=== PATIENT | female | born 1995 ===

== ENCOUNTER 2017-07-15 10:49 | Emergency (ER) | payer OTHER ==
--- NOTE | 2017-07-15 12:16 | UC ---
FLU HPI - HPI Summary HPI Summary: Pt c/o generalized malaise, BAY, cough, chills X 4 days. - History of Current Complaint Chief Complaint: UCGeneralIllness Stated Complaint: FEVER,MIGRAINE,TIRED Time Seen by Provider: 07/15/17 11:52 Hx Obtained From: Patient Hx Last Menstrual Period: 07/04/17 ?: No Onset/Duration: Sudden Onset, Lasting Days, Still Present Severity Currently: Mild Severity Initially: Mild Pain Intensity: 6 Associated Signs & Symptoms: Positive: Fever, Myalgia, Cough, Nasal Congestion, Headache Related Hx: Possible Flu/Infectious Exposure - Risk Factors Influenza Risk Factors: Negative - Allergy/Home Medications Allergies/Adverse Reactions: Allergies Allergy/AdvReac Type Severity Reaction Status Date / Time No Known Allergies Allergy Verified 07/15/17 11:44 Home Medications: Home Medications Ibuprofen [Advil] 400 07/15/17 [History] PMH/Surg Hx/FS Hx/Imm Hx Previously Healthy: Yes - Surgical History Surgical History: Yes Surgery Procedure, Year, and Place: RIGHT ANKLE, ORIF - Family History Known Family History: Positive: Cardiac Disease - Social History Occupation: Student Lives: Dormitory/Roommates Alcohol Use: Occasionally Substance Use Type: None Smoking Status (MU): Never Smoked Tobacco Have You Smoked in the Last Year: No Household Exposure Type: Cigarettes Review of Systems Constitutional: Fever, Chills, Fatigue Skin: Negative Eyes: Negative ENT: Sinus Congestion Respiratory: Cough Cardiovascular: Negative Gastrointestinal: Negative Genitourinary: Negative Motor: Negative Neurovascular: Negative Musculoskeletal: Myalgia Neurological: Headache Psychological: Negative Is Patient Immunocompromised?: No All Other Systems Reviewed And Are Negative: Yes Physical Exam Triage Information Reviewed: Yes Appearance: Well-Appearing Vital Signs: Initial Vital Signs Temp 98.6 F 07/15/17 11:43 Pulse 110 07/15/17 11:43 Resp 16 07/15/17 11:43 BP 145/77 07/15/17 11:43 Pulse Ox 99 07/15/17 11:43 Vital Signs Reviewed: Yes Eye Exam: Normal ENT Exam: Other ENT: Positive: Pharyngeal erythema, Nasal congestion Dental Exam: Normal Neck exam: Normal Respiratory Exam: Normal Cardiovascular Exam: Normal Musculoskeletal Exam: Normal Neurological Exam: Normal Psychological Exam: Normal Skin Exam: Normal Diagnostics - Laboratory Diagnostic Studies Completed/Ordered: rapid flu: negative Flu Course/Dx - Differential Dx/Diagnosis Differential Diagnosis/HQI/PQRI: Influenza, Upper Respiratory Infection Provider Diagnoses: Bronchitis Discharge - Sign-Out/Discharge Documenting (check all that apply): Discharge - Discharge Plan Condition: Stable Disposition: HOME Prescriptions: Albuterol HFA INHALER* [Ventolin HFA Inhaler*] 1 puff INH Q6H PRN #1 mdi PRN Reason: Sob/Wheezing Azithromycin TAB* [Zithromax TAB (Z-RENUKA) 250 mg #6 tabs] 2 tab PO .TODAY, THEN 1 DAILY #1 renuka predniSONE TAB* [Deltasone TAB*] 30 mg PO DAILY #9 tab Patient Education Materials: Acute Bronchitis (ED) Forms: *School Release Referrals: [facility] [Outside] Non Staff,Doctor [Primary Care Provider] - - Billing Disposition and Condition Condition: STABLE Disposition: HOME
== END 2017-07-15 12:43 | disposition home or self-care (01) ==
LOC: UCCORT 10:49
DX: J40 Bronchitis, not specified as acute or chronic (principal); Z77.22 Contact with and (suspected) exposure to environmental tobacco smoke (acute) (chronic)
CPT/HCPCS: 87502; 99202; G0463

== ENCOUNTER 2018-01-13 15:10 | Emergency (ER) | payer OTHER ==
[2018-01-13 16:16] VITALS: BP 142/78
[2018-01-13] MEDS ORDERED: Albuterol 2.5 MG/3 ML NEB.SOL* (0.083%) INH ONE (17:41)
--- NOTE | 2018-01-13 18:13 | RAD ---
INDICATION: Shortness of breath. Wheezing. Cough. COMPARISON: No relevant prior exams available on the [facility] PACS for comparison. TECHNIQUE: Dual energy PA and routine lateral views of the chest were obtained. REPORT: Clear lungs and pleural spaces. Negative for pneumothorax. The heart, pulmonary vasculature, and mediastinal contours are unremarkable. Unremarkable osseous structures and soft tissue contours. IMPRESSION: #. No evidence for pneumonia. Negative exam.
--- NOTE | 2018-01-13 18:32 | UC ---
Shortness of Breath HPI - HPI Summary HPI Summary: 22-year-old female history of asthma one month of shortness of breath described as episodic, feeling of "difficulty getting air", associated with feelings of anxiety, worse when she rides or car and sometimes when she lies down. Denies any pleuritic pain or chest pain. Denies any palpitations. No lower extremity edema, swelling, or recent travel or immobilization. Patient does not smoke cigarettes. Patient currently takes OCPs. In no acute distress. Symptoms associated with mild cough. - History of Current Complaint Chief Complaint: UCGeneralIllness Stated Complaint: RASPY BREATHING Hx Last Menstrual Period: 01/09/18 - Allergy/Home Medications Allergies/Adverse Reactions: Allergies Allergy/AdvReac Type Severity Reaction Status Date / Time No Known Allergies Allergy Verified 01/13/18 16:16 Home Medications: Home Medications Norgestrel-Ethinyl Estradiol [Cryselle-28] 1 tab PO BEDTIME 01/13/18 [History Confirmed 01/13/18] PMH/Surg Hx/FS Hx/Imm Hx - Additional Past Medical History Additional PMH: Asthma Previously Healthy: Yes - Surgical History Surgical History: Yes Surgery Procedure, Year, and Place: RIGHT ANKLE, ORIF - Family History Known Family History: Positive: Cardiac Disease - Social History Alcohol Use: Occasionally Alcohol Amount: weekends Substance Use Type: None Smoking Status (MU): Never Smoked Tobacco Have You Smoked in the Last Year: No Household Exposure Type: Cigarettes Review of Systems Skin: Negative Eyes: Negative Respiratory: Shortness Of Breath Cardiovascular: Negative Gastrointestinal: Negative Genitourinary: Negative Motor: Negative Neurovascular: Negative Musculoskeletal: Negative Neurological: Negative All Other Systems Reviewed And Are Negative: Yes Physical Exam - Summary Physical Exam Summary: Gen: alert, in no acute distress HEENT: EOMI, normocephalic, atruamatic, normal posterior oropharynx Neck: supple, no masses CV: Normal s1 s2, no murmurs Resp: slightly coarse breath sounds bilaterally, able to talk in full sentences without discomfort GI: no tenderness, no masses Musculoskeletal: normal ROM all 4 extremities, no lower extremity edema or tenderness of the calves. Negative Homans sign bilaterally. Neuro: no obvious focal neurological deficits Skin: no rash Lymph: no lymphadenopathy Psych: appropriate affect, oriented Triage Information Reviewed: Yes Vital Signs: Initial Vital Signs Temp 36.6 C 01/13/18 16:07 Pulse 72 01/13/18 16:07 Resp 17 01/13/18 16:07 BP 142/78 01/13/18 16:07 Pulse Ox 100 01/13/18 16:07 Shortness of Breath Dx - Course Course Of Treatment: Patient feels better after nebulizer medication , patient' s history and recollection of the events makes it unclear as to whether or not asthma is the clear etiology of her symptoms. I instructed her to continue using inhaler medication and to make an appointment with her primary care physician for prompt evaluation. I also instructed her to report to the ED for any worsening or concerning symptoms. Agrees to and understands discharge instructions. In no respiratory distress. Chest x-ray negative for any acute abnormalities. - Differential Dx/Diagnosis Provider Diagnoses: Shortness of breath Discharge - Sign-Out/Discharge Documenting (check all that apply): Patient Departure All imaging exams completed and their final reports reviewed: Yes - Discharge Plan Condition: Stable Disposition: HOME Prescriptions: Albuterol HFA INHALER* [Ventolin HFA Inhaler*] 1 - 2 puff INH Q4H PRN #2 mdi PRN Reason: Shortness Of Breath Patient Education Materials: Shortness of Breath (ED) Forms: *School Release Referrals: No Primary Care Phys,NOPCP [Primary Care Provider] - Additional Instructions: PLEASE TAKE MEDICATIONS DIRECTED PLEASE MAKE AN APPOINTMENT TO BE SEEN BY YOUR PRIMARY CARE DOCTOR WITHIN 1-2 WEEKS PLEASE REPORT TO THE ER FOR ANY WORSENING OR CONCERNING SYMPTOMS - Billing Disposition and Condition Condition: STABLE Disposition: Home
== END 2018-01-13 18:38 | disposition home or self-care (01) ==
LOC: UCCORT 15:10
DX: R06.02 Shortness of breath (principal)
CPT/HCPCS: 71046; 93005; 99212; G0463